=== PATIENT | female | born 1995 | race Caucasian/White ===

== ENCOUNTER 2020-03-31 00:03 | Inpatient (IN) | payer OTHER, BC ==
[~2020-03-31] VITALS: Ht 157.5 cm; Wt 73.0 kg
--- NOTE | ~2020-03-31 | OR ---
[facility] [address] [place], [place] [address] Draft DATE OF OPERATION: 03/31/2020 SURGEON: Washington Potts DO PREOPERATIVE DIAGNOSES: 1. Intrauterine , 39th week gestation. 2. Failure to descend. 3. GBS positive. POSTOPERATIVE DIAGNOSES: 1. Intrauterine , 39th week gestation. 2. Failure to descend. 3. GBS positive. 4. Persistent occipito-posterior positioning. PROCEDURES PERFORMED: Primary low transverse delivery. ASSEMBLER FOR PULLER OVER HAND: Rosaura Pelaez DO. ANESTHESIA: Epidural. COMPLICATIONS: None. ESTIMATED BLOOD LOSS: 900 mL. FINDINGS: Viable female , 8 pounds 12 ounces, born in the ROP position with no nuchal with significant molding and caput. Apgars of 8 and 9. Normal uterus, tubes, and ovaries, although some uterine atony initially noted, that resolved with Pitocin. COMPLICATIONS: None. INDICATIONS: Ms. Wilson is a very pleasant 24-year-old, G1, P0, with intrauterine at 39 PATIENT NAME: CHAGO WILSON OPERATIVE REPORT DATE OF : [birth year] REPORT #: [id number] PHYSICIAN: WASHINGTON POTTS DO PCP: GREG CAMPOS MD REPORT IS CONFIDENTIAL AND NOT TO BE RELEASED WITHOUT AUTHORIZATION [address] [address] Draft weeks gestation, who presented to Labor and delivery for induction of labor. She was given Cytotec and then AROM was performed. The patient progressed normally until at 9 cm. She remained at 9 cm for many hours despite maternal repositioning. Inadequate contractions have been noted and Pitocin augmentation was started. The patient was then progressed to complete and pushed with contractions, but no descent was noted and significant caput was noted. The patient and desired primary low-transverse delivery after discussing risks, benefits, and options. The patient understands and wishes to proceed with the procedure. TECHNIQUE: The patient was taken to the operating room, where a time-out was performed to confirm correct patient, and correct procedure. Previously placed epidural was bolused. The patient was then prepped and draped in the supine position with a bump on the right hip. A Swan catheter was inserted and ICPs were on a running. The patient received 2 g of Ancef and azithromycin 500 mg IV preoperatively. No heparin was indicated. After determining that the epidural was adequate, a Pfannenstiel skin incision was made and carried down to the fascia. The fascia was nicked in the midline and fascial incision was extended bilaterally using curved Whatley scissors. Fascia was grasped with Stalin's, elevated, and the underlying rectus dissected off bluntly and sharply. Rectus muscles were divided in the midline and the peritoneum was grasped with hemostats, elevated, and entered sharply. Peritoneal incision was extended cephalad-caudad using sharp and blunt dissection. The lower uterine segment was identified and Tavon self retractor was placed. The vertex was noted to be very deeply engaged in the pelvis. Hysterotomy was then performed using surgical scalpel and clear amniotic fluid was noted. Hysterotomy was extended bilaterally using blunt dissection. Again, the head was noted to be very deeply engaged in the pelvis and very carefully the surgeon's hand was placed into the uterine cavity, and the head was slowly and gently elevated into the abdomen with careful . The vertex then delivered with the assistance of fundal pressure. No nuchal cord was identified and the was delivered without complication. The was vigorous and cried upon delivery. Cord was doubly clamped and cut, and cord blood obtained for routine analysis after the was handed to the waiting pediatric team for further care. The placenta was then expressed intact with a centrally inserted three-vessel cord. Initial uterine atony was appreciated with some slightly increased bleeding. Uterine pressure was held and the uterus began to firm. Hysterotomy was then repaired using 0 Monocryl in a running nonlocked manner. A second vertical imbricating suture of 0 Monocryl was applied with excellent imbrication. A small amount of oozing was noted along the hysterotomy and this was repaired with two [id number]-qzlinb of 0 Monocryl. The uterus at this point was quite firm and no additional bleeding was noted. The pelvis was irrigated and found to be hemostatic. Normal tubes and ovaries were identified. The Tavon self retractor was removed and the pelvis was cleared of any clots. ACell sheet was applied to the lower uterine segment after ensuring hemostasis. Peritoneum was then PATIENT NAME: CHAGO WILSON OPERATIVE REPORT DATE OF : [birth year] REPORT #: [id number] PHYSICIAN: WASHINGTON POTTS DO PCP: GREG CAMPOS MD REPORT IS CONFIDENTIAL AND NOT TO BE RELEASED WITHOUT AUTHORIZATION [facility] [address] [place], [place] [address] Draft reapproximated using 2-0 Vicryl in a running nonlocked manner. The rectus muscles were evaluated and found to be hemostatic. These were plicated in the midline loosely with interrupted sutures of 0 Vicryl. Fascia was then reapproximated using 0 Vicryl in a running nonlocked manner. Subcutaneous was reapproximated using 2-0 Vicryl in a running nonlocked stitch. Skin was reapproximated using surgical scalpel. The uterus was Crede'd for approximately 200 mL of additional blood and clot. Uterus did remain firm once the clot was evacuated. The patient was taken to the PACU in good and stable condition. Sponge and instrument count were correct x2 at the end the procedure. Dr. Pelaez was present and participated in all portions of procedure. Washington Potts DO JDW/MODL /[id number] Copies: ~ PATIENT NAME: CHAGO WILSON OPERATIVE REPORT DATE OF : [birth year] REPORT #: [id number] PHYSICIAN: WASHINGTON POTTS DO PCP: GREG CAMPOS MD REPORT IS CONFIDENTIAL AND NOT TO BE RELEASED WITHOUT AUTHORIZATION
[~2020-03-31 00:03] MED LIST: BC PILL; MACROBID 100 M100 MG PO; PYRIDIUM200 MG PO
--- NOTE | 2020-03-31 10:32 | PR ---
[facility] [address] [facility] [place], [place] [address] Signed Progress Notes IP Datetime Report Generated by CPN: 03/31/2020 10:32 PROGRESS NOTES: [id number] Impression: Normal Progression of Labor; Reassuring Heart Rate Procedures: Artificial ROM; Intrauterine Pressure Catheter Plan: Continue Present Management Informed Consent Obtain: Vaginal Delivery VITAL SIGNS: [id number] Vital Signs: Reviewed; Within Normal Limits EXAM: [id number] Dilatation: 4.0 Effacement: 90 Station: -2 Contractions: Irregular, nonpainful MEMBRANES: [id number] Membranes Status: Ruptured Comments: Pt seen and evaluated. Doing well. Comfortable w/ epidural. No questions or concerns at this time. Discussed anticipated course of labor. Continue expectant management. FETUS A: [id number] FHR Baseline: 145 Variability: Moderate 6-25bpm Accelerations: 15X15 Decelerations: None FHR Category: Category I Presentation: Vertex Comments on Fetus A: No evidence of metabolic acidosis FETUS B: [id number] Signing Physician: Washington Potts DO Copies: ~ *Electronically Signed* 03/31/20 1032 WASHINGTON POTTS DO PATIENT NAME: CHAGO WILSON PROGRESS NOTE DATE OF : [birth year] PHYSICIAN: WASHINGTON POTTS DO RPT #: [id number] REPORT IS CONFIDENTIAL AND NOT TO BE RELEASED WITHOUT AUTHORIZATION
--- NOTE | 2020-03-31 15:56 | PR ---
[facility] [address] [place], [place] [address] Signed Progress Notes IP Datetime Report Generated by CPN: 03/31/2020 15:56 PROGRESS NOTES: [id number] Impression: Normal Progression of Labor; Reassuring Heart Rate Procedures: Sterile Vag Exam Plan: Continue Present Management; Anticipate Vaginal Delivery Informed Consent Obtain: Vaginal Delivery VITAL SIGNS: [id number] Vital Signs: Reviewed; Within Normal Limits EXAM: [id number] Dilatation: 9.5 Effacement: 100 Station: 0 Contractions: Irregular, nonpainful MEMBRANES: [id number] Membranes Status: Ruptured Comments: Pt seen and examined. Doing well. Comfortable w/ contractions. Now 9.5cm and zero station. Reviewed adequate pelvis, EFW, and anticipated course of labor. All quesitons answered. Anticipate FETUS A: [id number] FHR Baseline: 145 Variability: Moderate 6-25bpm Accelerations: 15X15 Decelerations: None FHR Category: Category I Presentation: Vertex Comments on Fetus A: No evidence of metabolic acidosis FETUS B: [id number] Signing Physician: Washington Potts DO Copies: ~ *Electronically Signed* 03/31/20 4300 WASHINGTON POTTS DO PATIENT NAME: CHAGO WILSON PROGRESS NOTE DATE OF : [birth year] PHYSICIAN: WASHINGTON POTTS DO RPT #: [id number] REPORT IS CONFIDENTIAL AND NOT TO BE RELEASED WITHOUT AUTHORIZATION
--- NOTE | 2020-03-31 18:30 | PR ---
[facility] [address] [place], [place] [address] Signed Progress Notes IP Datetime Report Generated by CPN: 03/31/2020 18:30 PROGRESS NOTES: [id number] Impression: Normal Progression of Labor; Reassuring Heart Rate Procedures: Sterile Vag Exam Plan: Augmentation; Anticipate Vaginal Delivery Informed Consent Obtain: Vaginal Delivery VITAL SIGNS: [id number] Vital Signs: Reviewed; Within Normal Limits EXAM: [id number] Dilatation: 9.5 Effacement: 100 Station: 0 Contractions: Irregular, nonpainful MEMBRANES: [id number] Membranes Status: Ruptured Comments: Pt seen and examined. Doing well. Comfortable w/ contractions. ABDIRAHMAN position, 0 station, and anterior lip. Contractions q5-6 minutes. Discussed reduction of cervical lip and pushing vs augmentation with low dose pitocin. Pt desires low dose pit. Ordered per protocol FETUS A: [id number] FHR Baseline: 145 Variability: Moderate 6-25bpm Accelerations: 15X15 Decelerations: None FHR Category: Category I Presentation: Vertex Comments on Fetus A: No evidence of metabolic acidosis FETUS B: [id number] Signing Physician: Washington Potts DO Copies: ~ *Electronically Signed* 03/31/20 9750 WASHINGTON POTTS DO PATIENT NAME: CHAGO WILSON PROGRESS NOTE DATE OF : [birth year] PHYSICIAN: WASHINGTON POTTS DO RPT #: [id number] REPORT IS CONFIDENTIAL AND NOT TO BE RELEASED WITHOUT AUTHORIZATION
--- NOTE | 2020-03-31 20:47 | PR ---
[facility] [address] [place], [place] [address] Signed Progress Notes IP Datetime Report Generated by CPN: 03/31/2020 20:47 PROGRESS NOTES: [id number] Impression: Reassuring Heart Rate Procedures: Sterile Vag Exam Plan: Continue Present Management; Anticipate Vaginal Delivery Informed Consent Obtain: Vaginal Delivery VITAL SIGNS: [id number] Vital Signs: Reviewed; Within Normal Limits EXAM: [id number] Dilatation: 10.0 Effacement: 100 Station: 0 Contractions: Irregular, nonpainful MEMBRANES: [id number] Membranes Status: Ruptured Comments: Pt pushing well w/ contractions. Contractions low amplitude and irregular despite pitocin augmentation. Moderate variability continues despite a few late decelerations. Will continue to monitor status and descent closely. Pelvis adequate. FETUS A: [id number] FHR Baseline: 145 Variability: Moderate 6-25bpm Accelerations: 15X15 Decelerations: None FHR Category: Category I Presentation: Vertex Comments on Fetus A: No evidence of metabolic acidosis FETUS B: [id number] Signing Physician: Washington Potts DO Copies: ~ *Electronically Signed* 03/31/202046 WASHINGTON POTTS DO PATIENT NAME: CHAGO WILSON PROGRESS NOTE DATE OF : [birth year] PHYSICIAN: WASHINGTON POTTS DO RPT #: [id number] REPORT IS CONFIDENTIAL AND NOT TO BE RELEASED WITHOUT AUTHORIZATION
--- NOTE | 2020-03-31 21:21 | PR ---
[facility] [address] [place], [place] [address] Signed Progress Notes IP Datetime Report Generated by CPN: 03/31/2020 21:21 PROGRESS NOTES: [id number] Impression: Reassuring Heart Rate Other Impressions: Slow progression, inadequate contractions Procedures: Sterile Vag Exam Plan: Continue Present Management; Anticipate Vaginal Delivery Other Plans: labor down Informed Consent Obtain: Vaginal Delivery; Section Delivery; Risks, Benefits and Alternatives Discussed VITAL SIGNS: [id number] Vital Signs: Reviewed; Within Normal Limits EXAM: [id number] Dilatation: 10.0 Effacement: 100 Station: 0 Contractions: Irregular, nonpainful MEMBRANES: [id number] Membranes Status: Ruptured Comments: Pt seen and examined. Minimal progress made with pushing, but contractions irregular and inadequate. FHT reassuring. Discussed options for continued management of 2nd stage: laboring down vs continued pushing. Recommended laboring down with pitocin augmentation. Discussed indications for if failure of descent determined. Reviewed risk of shoulder dystocia. All questions answered. FETUS A: [id number] FHR Baseline: 145 Variability: Moderate 6-25bpm Accelerations: 15X15 Decelerations: None FHR Category: Category I Presentation: Vertex Comments on Fetus A: No evidence of metabolic acidosis FETUS B: [id number] Signing Physician: Washington Potts DO Copies: *Electronically Signed* 03/31/20 2777 WASHINGTON POTTS DO PATIENT NAME: CHAGO WILSON PROGRESS NOTE DATE OF : [birth year] PHYSICIAN: WASHINGTON POTTS DO RPT #: [id number] REPORT IS CONFIDENTIAL AND NOT TO BE RELEASED WITHOUT AUTHORIZATION [facility] [address] [place] [address] [place], [place] [address] Signed ~ *Electronically Signed* 03/31/202120 WASHINGTON POTTS DO PATIENT NAME: CHAGO WILSON PROGRESS NOTE DATE OF : 94 PHYSICIAN: WASHINGTON POTTS DO RPT #: [id number] REPORT IS CONFIDENTIAL AND NOT TO BE RELEASED WITHOUT AUTHORIZATION
--- NOTE | 2020-03-31 22:30 | PR ---
[facility] [address] [place], [place] [address] Signed Progress Notes IP Datetime Report Generated by CPN: 03/31/2020 22:30 PROGRESS NOTES: [id number] Impression: Arrest of Dilatation/Descent; Reassuring Heart Rate Other Impressions: Slow progression, inadequate contractions Procedures: Sterile Vag Exam Plan: Deliver- Section Other Plans: labor down Informed Consent Obtain: Section Delivery; Risks, Benefits and Alternatives Discussed VITAL SIGNS: [id number] Vital Signs: Reviewed; Within Normal Limits EXAM: [id number] Dilatation: 10.0 Effacement: 100 Station: 0 Contractions: Irregular, nonpainful MEMBRANES: [id number] Membranes Status: Ruptured Comments: Pt seen and examined. Pushed well w/ contractions. No movement noted with laboring down or with pushing. Signficant caput noted to continue to increase. Discussed concerns with continuing w/ trial of labor and pt and request primary LTCS. Reviewed risks and benefits of C/S including infection, bleeding, injury to surrounding GI/ structures, and implications in future pregnancies. Pt understands and agrees. Consents signed. FETUS A: [id number] FHR Baseline: 145 Variability: Moderate 6-25bpm Accelerations: 15X15 Decelerations: None FHR Category: Category I Presentation: Vertex Comments on Fetus A: No evidence of metabolic acidosis FETUS B: [id number] Signing Physician: Washington Potts DO Copies: *Electronically Signed* 03/31/20 2253 WASHINGTON POTTS DO PATIENT NAME: CHAGO WILSON PROGRESS NOTE DATE OF : [birth year] PHYSICIAN: POTTSWASHINGTON DO RPT #: [id number] REPORT IS CONFIDENTIAL AND NOT TO BE RELEASED WITHOUT AUTHORIZATION [address] [place], [place] [address] Signed ~ *Electronically Signed* 03/31/202229 POTTS,WASHINGTON Kee DO PATIENT NAME: CHAGO IWLSON PROGRESS NOTE DATE OF : [birth year] PHYSICIAN: WASHINGTON POTTS DO RPT #: [id number] REPORT IS CONFIDENTIAL AND NOT TO BE RELEASED WITHOUT AUTHORIZATION
--- NOTE | 2020-04-01 00:25 | NUR ---
04/01/20 0025 Shaun Payan SEE [facility] CHARTING FOR ALL RECORDED PACU VITAL SIGNS. PT ARRIVES TO PACU WITH 20G IV IN PLACE IN RIGHT HAND
--- NOTE | 2020-04-01 09:36 | PR ---
[facility] [address] [facility] [place], [place] [address] Signed PP Progress Notes Datetime Report Generated by CPN: 04/01/2020 09:36 SUBJECTIVE: [id number] Pain: Within Normal Limits Nausea/Vomiting: Denies Flatus: Yes Vital Signs: [id number] Vital Signs: Reviewed; Within Normal Limits Cardiovascular: Normal Respiratory: Normal Abdomen/Uterus: Normal Lochia: Normal Vulva/Perineum: Not Done Breasts: Not Done CVA Tenderness: Normal Extremities: Normal Incision: Normal Progress: Normal Exam Comments: Fundus firm U-2 nontender. Incision healing well IMPRESSION/PLAN/PROCEDURES: [id number] Impression: Normal Progression Plan: Continue Present Management Progress Notes: Pt seen and examined. Doing well. Swan in place. Ambulating and tolerating full diet. Pain and lochia minimal. well. Continue care Signing Physician: Washington Potts DO Copies: ~ *Electronically Signed* 04/01/20 0936 WASHINGTON POTTS DO PATIENT NAME: CHAGO WILSON PROGRESS NOTE DATE OF : [birth year] PHYSICIAN: WASHINGTON POTTS DO [facility] #: [id number] REPORT IS CONFIDENTIAL AND NOT TO BE RELEASED WITHOUT AUTHORIZATION
--- NOTE | 2020-04-02 08:24 | PR ---
[facility] [address] [place], [place] [address] Signed PP Progress Notes Datetime Report Generated by CPN: 04/02/2020 08:24 SUBJECTIVE: [id number] Pain: Within Normal Limits Nausea/Vomiting: Denies Flatus: Yes Bowel Movement: No Vital Signs: [id number] Vital Signs: Reviewed; Within Normal Limits Cardiovascular: Normal Respiratory: Normal Abdomen/Uterus: Normal Lochia: Normal Vulva/Perineum: Not Done Breasts: Not Done CVA Tenderness: Normal Extremities: Normal Incision: Normal Progress: Normal Exam Comments: Fundus firm U-2 nontender. Pt sitting up in chair and incision was not examined today IMPRESSION/PLAN/PROCEDURES: [id number] Impression: Normal Progression Other Impression: Acute blood loss anemia Plan: Continue Present Management Progress Notes: Pt seen and examined. Doing well. Ambulating, voiding, and tolerating full diet. Pain and lochia minimal. No lightheadeness/dizziness but Hgb 7.2. No fevers chills or other concerns. well. Anticipate d/c home tomorrow. Reviewed d/c instructions and contraceptive plans. All questions answered. Signing Physician: Washington Potts DO Copies: ~ *Electronically Signed* 04/02/20823 WASHINGTON POTTS DO PATIENT NAME: CHAGO WILSON PROGRESS NOTE DATE OF : [birth year] PHYSICIAN: WASHINGTON POTTS DO RPT #: [id number] REPORT IS CONFIDENTIAL AND NOT TO BE RELEASED WITHOUT AUTHORIZATION
--- NOTE | 2020-04-03 08:41 | PR ---
[place] [facility] [address] [place], [place] [address] Signed PP Progress Notes Datetime Report Generated by CPN: 04/03/2020 08:40 SUBJECTIVE: [id number] Pain: Within Normal Limits Nausea/Vomiting: Denies Flatus: Yes Bowel Movement: Yes Vital Signs: [id number] Vital Signs: Reviewed; Within Normal Limits Notable Details: mild tachycardia, otherwise asymptomatic, starting iron today Cardiovascular: Normal Respiratory: Normal Abdomen/Uterus: Normal Lochia: Normal Vulva/Perineum: Not Done Breasts: Not Done CVA Tenderness: Normal Extremities: Normal Incision: Normal Progress: Normal Exam Comments: Incision c/d/i, no erythema IMPRESSION/PLAN/PROCEDURES: [id number] Impression: Normal Progression Other Impression: Acute blood loss anemia Plan: Continue Present Management; Remove Maljamar; Discharge Progress Notes: Pt seen and examined. Doing well. Ambulating, voiding, and tolerating full diet. Pain and lochia minimal. No lightheadeness/dizziness but Hgb 7.2. No fevers chills or other concerns. well. Anticipate d/c home tomorrow. Reviewed d/c instructions and contraceptive plans. All questions answered. Signing Physician: Alicja Pelaez DO Copies: ~ *Electronically Signed* 04/03/20 0833 ALICJA PELAEZ DO PATIENT NAME: CHAGO WILSON PROGRESS NOTE DATE OF : [birth year] PHYSICIAN: ALICJA PELAEZ DO RPT #: [id number] REPORT IS CONFIDENTIAL AND NOT TO BE RELEASED WITHOUT AUTHORIZATION
== END 2020-04-03 11:15 | disposition home or self-care (01) | DRG 787 ==
LOC: FBC 00:03
PROVIDERS: ADMIT Obstetrics & Gynecology; ATTEND Obstetrics & Gynecology
PROC: 10H07YZ Insertion of Other Device into Products of Conception, Via Natural or Artificial Opening (ICD-10-PCS; 2020-03-31)
PROC: 10907ZC Drainage of Amniotic Fluid, Therapeutic from Products of Conception, Via Natural or Artificial Opening (ICD-10-PCS; 2020-03-31)
PROC: 3E0P7VZ Introduction of Hormone into Female Reproductive, Via Natural or Artificial Opening (ICD-10-PCS; 2020-03-31)
PROC: 00HU33Z Insertion of Infusion Device into Spinal Canal, Percutaneous Approach (ICD-10-PCS; 2020-03-31)
PROC: 3E0R3BZ Introduction of Anesthetic Agent into Spinal Canal, Percutaneous Approach (ICD-10-PCS; 2020-03-31)
PROC: 10D00Z1 Extraction of Products of Conception, Low, Open Approach (ICD-10-PCS; principal; 2020-03-31 23:00)
DX: O99.824 Streptococcus B carrier state complicating childbirth (principal); D62 Acute posthemorrhagic anemia; Z3A.39 39 weeks gestation of pregnancy; Z37.0 Single live birth; O90.81 Anemia of the puerperium; O64.0XX0 Obstructed labor due to incomplete rotation of fetal head, not applicable or unspecified; O72.1 Other immediate postpartum hemorrhage
CPT/HCPCS: 01961; 36415; 85027; A9270; J0690; J1170; J1885; J2001; J2274; J2370; J2405; J2540; J2590; J2795; J3010

== ENCOUNTER 2023-05-09 13:44 | Emergency (ER) | payer OTHER ==
[~2023-05-09] VITALS: Ht 157.5 cm; Wt 57.5 kg
[2023-05-09] MEDS ORDERED: ONDANSETRON ODT4 MG PO (14:26)
[2023-05-09] MEDS ORDERED: PROMETHAZINE12.5 M1 PO (14:26)
[2023-05-09 15:51] LABS: BASOPHILS 0.2 % (0-2); EOSINOPHILS 0.5 % (0-6); HEMATOCRIT 32.7 % (35.0-50.0); HEMOGLOBIN 11.2 g/dL (12.0-18.0); LYMPHOCYTES 21.4 % (24-44); MCH 31.6 (27-36); MCHC 34.3 g/dl (30-36); MCV 92.1 fl (81-99); MONOCYTES 4.6 % (0-12); NEUTROPHILS 73.3 % (39-80); PLATELET COUNT 180 K/uL (140-440); RBC 3.55 M/ul (4.3-5.7); RDW 13.4 (10.5-15.0)
[2023-05-09 16:15] LABS: ALBUMIN 3.1 g/dL (3.4-5.0); ALBUMIN/GLOBULIN RATIO 0.97 (1.1-2.4); ANION GAP 11.2 (7-21); BILIRUBIN, TOTAL 0.5 ng/dL (0.2-1.0); BUN/CREATININE RATIO 12.5 (6.0-28.6); CALCIUM 8.3 mg/dL (8.5-10.1); CREATININE, SERUM 0.56 mg/dL (0.55-1.02); POTASSIUM 3.2 mmol/L (3.5-5.1); PROTEIN, TOTAL 6.3 g/dL (6.4-8.2); TSH, 3RD GENERATION 0.868 uIU/mL (0.358-3.740)
[2023-05-09 17:00] VITALS: BP 104/67
[2023-05-09] MEDS ORDERED: K-TAB ER20 MEQ PO (17:25)
== END 2023-05-09 17:42 | disposition home or self-care (01) ==
LOC: ED 13:44
PROVIDERS: Emergency Medicine
DX: O99.281 Endocrine, nutritional and metabolic diseases complicating pregnancy, first trimester (principal); E87.6 Hypokalemia; Z3A.11 11 weeks gestation of pregnancy; Z79.899 Other long term (current) drug therapy
CPT/HCPCS: 36415; 80053; 84443; 85025; 99284; A9270

== ENCOUNTER 2023-11-10 21:58 | Inpatient (IN) | payer OTHER ==
--- NOTE | ~2023-11-10 | OR ---
[facility] [address], [place] [address] Draft DATE OF OPERATION: 11/10/2023 SURGEON: Washington Potts DO PREOPERATIVE DIAGNOSES: 1. Intrauterine at 37 weeks gestation. 2. History of prior . 3. Gestational diabetes, diet controlled. POSTOPERATIVE DIAGNOSES: 1. Intrauterine at 37 weeks gestation. 2. History of prior . 3. Gestational diabetes, diet controlled. 4. Pelvic adhesions. FURNACE DOOR TENDER: Mamta Hooker MD PROCEDURE PERFORMED: Repeat low transverse delivery with lysis of adhesions. ANESTHESIA: Spinal. ESTIMATED BLOOD LOSS: 600 mL. DRAINS: Swan to gravity. COMPLICATIONS: None. FINDINGS: Delivery of viable female in the LOP position via repeat low transverse section. Clear amniotic fluid and nuchal cord was not observed. Normal uterus, tubes, and ovaries. The patient did have the bladder scarred fairly high on the uterus and this was brought down with a bladder flap. Hemostasis at the end of the procedure. INDICATIONS: PATIENT NAME: CHAGO WILSON OPERATIVE REPORT DATE OF : [birth year] REPORT #: [id number] PHYSICIAN: WASHINGTON POTTS) PCP: GREG CAMPOS MD REPORT IS CONFIDENTIAL AND NOT TO BE RELEASED WITHOUT AUTHORIZATION [address] [address] [place] Ms. Wilson is a very pleasant 28-year-old, G2, P1, with intrauterine at 37 weeks gestation who presented to Labor and delivery with spontaneous rupture of membranes. complicated by GDM, diet-controlled and history of prior . She is consented for a repeat low transverse delivery. Risks, benefits, and alternatives were discussed in detail with the patient. The patient understands and wished to proceed with the procedure. TECHNIQUE: The patient was taken to the OR. A time-out was performed to confirm correct patient, correct procedure. Spinal anesthesia was adequately established. The patient was prepped and draped in the supine position with a bump under the right hip. Ancef 2 g preoperatively as well as azithromycin 500 mg were given. A Swan catheter was inserted. Once spinal was noted to be adequate, a Pfannenstiel skin incision was made through the prior scar and carried down to the fascia. The fascia was nicked in the midline. Fascial incision was extended bilaterally using Whatley scissors. The fascia was grasped with Stalin's, elevated, and the underlying rectus muscle was dissected off bluntly and sharply as it was densely adherent. The rectus was then divided bluntly in the midline and peritoneum was entered bluntly. Peritoneal incision was extended cephalad caudad using sharp and blunt dissection. The bladder was noted to be quite high-riding to the midportion of the uterus. A bladder flap was made by incising the serosa and mobilizing the bladder below the lower uterine segment. The Tavon self retractor was placed. Hysterotomy was performed using a surgical scalpel for clear amniotic fluid. Hysterotomy was extended bilaterally using blunt dissection. Surgeon's hand was placed in the uterine cavity and the head elevated in the LOP position with the assistance of fundal pressure. was delivered without difficulty and was it vigorous and cried. No nuchal cord was identified. The cord was doubly clamped, cut, and cord blood obtained for routine analysis. The baby was handed to the waiting pediatric team for further care. Placenta was expressed, intact with a centrally inserted three-vessel cord. Uterine cavity was cleared of any remaining products of conception or clot. Hysterotomy was repaired in two layers, the first being 0 Monocryl. A rapidly expanding hematoma was noted on the left inferior edge of the hysterotomy, but this was quickly stopped with extra suture of 0 Monocryl. This was evaluated several times. The remainder of the repair and no additional expansion or concern was noted. The hysterotomy was then closed in a second layer of Monocryl imbricating stitch with excellent imbrication and hemostasis. The pelvis was irrigated, found to be hemostatic. Normal uterus, tubes, and ovaries was appreciated. The Tavon retractor was removed and peritoneum was reapproximated using 2-0 Vicryl in a running nonlocked manner. The rectus was noted to have diffuse oozing from dense adhesions that were taken down bluntly and sharply. This layer was made hemostatic with judicious use of Bovie electrocautery. Two interrupted sutures of 0 Vicryl in the right lateral portion of the rectus and with Luciano. Once hemostasis was appreciated, the rectus was plicated in the midline using three interrupted sutures of 0 Vicryl. Excellent hemostasis was PATIENT NAME: CHAGO WILSON OPERATIVE REPORT DATE OF : [birth year] REPORT #: [id number] PHYSICIAN: WASHINGTON POTTS (SETH) DO PCP: GREG CAMPOS MD REPORT IS CONFIDENTIAL AND NOT TO BE RELEASED WITHOUT AUTHORIZATION [address] [address] [place] appreciated. The fascia was then reapproximated using 0 Vicryl in a running nonlocked manner. Subcu was irrigated, made hemostatic with judicious use of Bovie electrocautery. Interrupted sutures of 3-0 Vicryl were used to reapproximate the subcu and remove tension from the skin closure. Skin was reapproximated using surgical alondra. The uterus was crede'd for scant amount of blood. The patient was then taken to PACU in good and stable condition. Sponge, needle, and instrument counts correct x2 at the end the procedure. Dr. Hooker was present and participated in all portions of the procedure. Washington Potts DO JLA/MODL /[id number] Copies: ~ PATIENT NAME: CHAGO WILSON OPERATIVE REPORT DATE OF : [birth year] REPORT #: [id number] PHYSICIAN: WASHINGTON POTTS DO (JD) PCP: GREG CAMPOS MD REPORT IS CONFIDENTIAL AND NOT TO BE RELEASED WITHOUT AUTHORIZATION
[~2023-11-10 21:58] MED LIST changes: +K-TAB ER20 MEQ PO; +ONDANSETRON ODT4 MG PO; +PROMETHAZINE12.5 M1 PO
[2023-11-10] MEDS ORDERED: CEFAZOLIN SODIUM 2 GM/20 ML SYR IV SCH (22:31)
[2023-11-10] MEDS ORDERED: AZITHROMYCIN/DEXTROSE 500 MG/250 ML BAG IV STA (22:31)
[2023-11-10] MEDS ORDERED: ondansetron HCL 4 MG/2 ML VIAL ONE (22:40)
[2023-11-10] MEDS ORDERED: ACETAMINOPHEN 1,000 MG/100 ML VIAL ONE (22:40)
[2023-11-10] MEDS ORDERED: BUPIVACAINE 0.75% IN DEXTROSE 2 ML AMP ONE (22:40)
[2023-11-10] MEDS ORDERED: DEXAMETHASONE SOD PHOS 4 MG/ML VIAL ONE ×2 (22:40→22:41)
[2023-11-10] MEDS ORDERED: LIDOCAINE HCL 2% 5 ML SDV ONE (22:40)
[2023-11-10] MEDS ORDERED: PHENYLEPHRINE HCL 10 MG/ML VIAL ONE (22:40)
[2023-11-10] MEDS ORDERED: SODIUM CHLORIDE 0.9% 40 ML IV ONE (22:40)
[2023-11-10] MEDS ORDERED: fentaNYL citrate 100 MCG/2 ML VIAL ONE (22:40)
[2023-11-10] MEDS ORDERED: Ropivacaine HCl 0.5% 30 ML VIAL ONE (22:40)
[2023-11-10] MEDS ORDERED: KETOROLAC TROMETHAMINE 30 MG/ML VIAL ONE (22:40)
[2023-11-10] MEDS ORDERED: ePHEDrine sulfate 50 MG/ML AMP ONE (22:40)
[2023-11-10] MEDS ORDERED: SODIUM CHLORIDE 0.9% 20 ML IV ONE ×2 (22:41→22:51)
[2023-11-10] MEDS ORDERED: dexmedeTOMIDine HCl 200 MCG/2 ML VIAL ONE (22:41)
[2023-11-10] MEDS ORDERED: LACTATED RINGER'S 1,000 ML IV PRN (22:45)
[2023-11-10] MEDS ORDERED: SOD+POT BICARB/CITRIC ACID 2 EA TABLET.EFF PO ONE (22:45)
[2023-11-10 23:03] LABS: HEMATOCRIT 33.4 % (35.0-50.0); HEMOGLOBIN 11.7 g/dL (12.0-18.0); MCH 33.4 (27-36); MCV 95.5 fl (81-99); RBC 3.5 M/ul (4.3-5.7); RDW 13.7 (10.5-15.0)
[2023-11-10 23:13] LABS: AMPHETAMINES, URINE NEGATIVE (NEGATIVE); BARBITURATES, URINE NEGATIVE (NEGATIVE); BENZODIAZEPINE, URINE NEGATIVE (NEGATIVE); BUPRENORPHINE, URINE NEGATIVE (NEGATIVE); CANNABINOID, URINE NEGATIVE (NEGATIVE); COCAINE, URINE NEGATIVE (NEGATIVE); ECSTASY, URINE NEGATIVE (NEGATIVE); FENTANYL, URINE NEGATIVE (NEGATIVE); METHADONE, URINE NEGATIVE (NEGATIVE); OPIATES, URINE NEGATIVE (NEGATIVE); OXYCODONE, URINE NEGATIVE (NEGATIVE); PHENCYCLIDINE, URINE NEGATIVE (NEGATIVE)
[2023-11-10] MEDS ORDERED: OXYTOCIN 10 UNITS/ML VIAL ONE (23:24)
[2023-11-10 23:35] LABS: ABO O; RH POSITIVE
[2023-11-10 23:36] LABS: ANTIBODY SCREEN NEGATIVE
[2023-11-11] MEDS ORDERED: TRANEXAMIC ACID 1,000 MG/10 ML AMP ONE (00:20)
[2023-11-11] MEDS ORDERED: LACTATED RINGER'S 1,000 ML IV SCH ×2 (00:44→05:00)
[2023-11-11] MEDS ORDERED: PROMETHAZINE HCL 25 MG SUPP PR PRN (00:45)
[2023-11-11] MEDS ORDERED: OXYCODONE HCL 5 MG TAB PO PRN (00:45)
[2023-11-11] MEDS ORDERED: OXYTOCIN/0.9 % SODIUM CHLORIDE 500 ML IV SCH (00:45)
[2023-11-11] MEDS ORDERED: ondansetron HCL 4 MG/2 ML VIAL IV PRN ×2 (00:45→02:30)
[2023-11-11] MEDS ORDERED: bisacodyL 10 MG SUPP PR PRN (00:45)
[2023-11-11] MEDS ORDERED: PROCHLORPERAZINE EDISYLATE 10 MG/2 ML VIAL IV PRN (00:45)
[2023-11-11] MEDS ORDERED: PROMETHAZINE HCL 25 MG TAB PO PRN (00:45)
[2023-11-11] MEDS ORDERED: LIDOCAINE 2% VISCOUS 6 ML SYR TOP ONE (00:45)
[2023-11-11] MEDS ORDERED: ACETAMINOPHEN 500 MG TAB PO SCH ×2 (00:45→10:00)
[2023-11-11] MEDS ORDERED: METOCLOPRAMIDE HCL 10 MG/2 ML SDV IV PRN (00:45)
[2023-11-11] MEDS ORDERED: KETOROLAC TROMETHAMINE 30 MG/ML VIAL IV SCH (02:00)
[2023-11-11] MEDS ORDERED: HYDROmorphone HCL 1 MG/ML SYR IV PRN (02:30)
[2023-11-11] MEDS ORDERED: diphenhydrAMINE HCL 50 MG/ML VIAL IV PRN (02:30)
[2023-11-11] MEDS ORDERED: KETOROLAC TROMETHAMINE 30 MG/ML VIAL IV PRN (02:30)
[2023-11-11] MEDS ORDERED: NALOXONE HCL 0.4 MG SYR IV PRN (02:30)
[2023-11-11] MEDS ORDERED: MORPHINE SULFATE 4 MG/ML VIAL IV PRN (02:30)
--- NOTE | 2023-11-11 03:19 | NUR ---
11/11/23 0319 Smumer Holliday 0038 PT ARRIVED IN PACU WIDE AWAKE WITH NO C/O'S. 0045 MOM BREAST FEEDING BABY WITH HELP FROM DAD. 0104 REPORT GIVEN TO [facility] RN. BED PLUGGED. FAMILY AT BEDSIDE.
[2023-11-11] MEDS ORDERED: IBUPROFEN 800 MG TAB PO SCH (06:00)
[2023-11-11 06:22] VITALS: BP 115/63
[2023-11-11] MEDS ORDERED: SIMETHICONE 125 MG TABLET CHEWABLE PO SCH (07:00)
[2023-11-11] MEDS ORDERED: SENNOSIDES/DOCUSATE 1 EA TAB PO SCH (09:00)
--- NOTE | 2023-11-11 13:30 | PR ---
[facility] [address] [facility] [place], [place] [address] Signed PP Progress Notes Datetime Report Generated by CPN: 11/11/2023 13:30 SUBJECTIVE: [id number] Pain: Within Normal Limits Nausea/Vomiting: Denies Flatus: Yes Bowel Movement: No Vital Signs: [id number] Vital Signs: Reviewed; Within Normal Limits Cardiovascular: Normal Respiratory: Normal Abdomen/Uterus: Normal Lochia: Normal Vulva/Perineum: Not Done Breasts: Not Done CVA Tenderness: Normal Extremities: Normal Progress: Normal Exam Comments: Fundus firm and nontender. Incision check deferred as pt sitting up IMPRESSION/PLAN/PROCEDURES: [id number] Impression: Normal Progression Plan: Continue Present Management Progress Notes: Pt seen and examined. Doing well. Ambulating and tolerating full diet. Pain and lochia minimal. Swan just removed by RN. well. No complaints. Desires d/c home tomorrow. Signing Physician: Washington Potts DO Copies: ~ *Electronically Signed* 11/11/23 0705 WASHINGTON POTTS (SETH) DO PATIENT NAME: KATIECHAGO PROGRESS NOTE DATE OF : [birth year] PHYSICIAN: WASHINGTON POTTS) DO RPT #: [id number] REPORT IS CONFIDENTIAL AND NOT TO BE RELEASED WITHOUT AUTHORIZATION
[2023-11-12 05:30] LABS: HEMOGLOBIN 10.1 g/dL (12.0-18.0); MCH 33.3 (27-36); MCHC 34.9 g/dl (30-36); MCV 95.6 fl (81-99); RBC 3.03 M/ul (4.3-5.7); RDW 13.9 (10.5-15.0)
[2023-11-12] MEDS ORDERED: IBUPROFEN 800 MG TAB PO SCH (06:00)
--- NOTE | 2023-11-12 13:28 | PR ---
[facility] [address] [facility] [place], [place] [address] Signed PP Progress Notes Datetime Report Generated by CPN: 11/12/2023 13:28 SUBJECTIVE: [id number] Pain: Within Normal Limits Nausea/Vomiting: Denies Flatus: Yes Bowel Movement: No Vital Signs: [id number] Vital Signs: Reviewed; Within Normal Limits Cardiovascular: Normal Respiratory: Normal Abdomen/Uterus: Normal Lochia: Normal Vulva/Perineum: Not Done Breasts: Not Done CVA Tenderness: Normal Extremities: Normal Incision: Normal Progress: Normal Exam Comments: Fundus firm U-2 nontender. Incision well healed IMPRESSION/PLAN/PROCEDURES: [id number] Impression: Normal Progression Plan: Remove Ramón; Discharge Progress Notes: Pt seen and examined. Doing well. Ambulating, voiding, and tolerating full diet. Pain and lochia minimal. No concerns. Desires d/c home. . Reviewed dc meds and instructions. All quesitons answered Signing Physician: Washington Potts DO Copies: ~ *Electronically Signed* 11/12/23 7084 WASHINGTON POTTS (SETH) DO PATIENT NAME: CHAGO WILSON PROGRESS NOTE DATE OF : [birth year] PHYSICIAN: WASHINGTON POTTS (SETH) DO RPT #: [id number] REPORT IS CONFIDENTIAL AND NOT TO BE RELEASED WITHOUT AUTHORIZATION
== END 2023-11-12 13:45 | disposition home or self-care (01) | DRG 788 ==
LOC: FBCO 21:58 → FBC 22:26
PROVIDERS: Obstetrics & Gynecology; ADMIT Obstetrics & Gynecology; ATTEND Obstetrics & Gynecology
PROC: 10D00Z1 Extraction of Products of Conception, Low, Open Approach (ICD-10-PCS; principal; 2023-11-10 23:34)
DX: O34.211 Maternal care for low transverse scar from previous cesarean delivery (principal); O24.420 Gestational diabetes mellitus in childbirth, diet controlled; Z3A.37 37 weeks gestation of pregnancy; Z37.0 Single live birth; O34.83 Maternal care for other abnormalities of pelvic organs, third trimester; N73.6 Female pelvic peritoneal adhesions (postinfective); O99.824 Streptococcus B carrier state complicating childbirth; O42.02 Full-term premature rupture of membranes, onset of labor within 24 hours of rupture
CPT/HCPCS: 01961; 36415; 80307; 85027; 86850; 86900; 86901; A9270; J0131; J0456; J0690; J1100; J1885; J2001; J2371; J2405; J2590; J2795; J3010